=== PATIENT | male | born 1975 | race Caucasian/White ===

== ENCOUNTER 2023-01-31 23:17 | Emergency (ER) | payer BC, OTHER ==
[2023-01-31] MEDS ORDERED: Ketorolac 30 MG/ML SDV IM ONE (23:34)
[2023-01-31] MEDS: Cyclobenzaprine 10 MG Tab PO ONE ×2 (23:38→23:54)
[2023-01-31] MEDS ORDERED: Baclofen 10 MG Tab PO ONE (23:47)
[2023-02-01] MEDS ORDERED: traMADol 50 MG Tab PO ONE (00:22)
== END 2023-02-01 01:42 | disposition home or self-care (01) ==
LOC: FB.ED 23:17
DX: M54.16 Radiculopathy, lumbar region (principal); F17.210 Nicotine dependence, cigarettes, uncomplicated; Z88.2 Allergy status to sulfonamides
CPT/HCPCS: 96372; 99283; A9270; J1885